=== PATIENT | male | born 1985 | race Caucasian/White ===

== ENCOUNTER 2016-05-03 21:34 | Emergency (ER) | payer OTHER ==
[~2016-05-03] VITALS: Ht 182.9 cm; Wt 122.5 kg
[2016-05-03 21:38] VITALS: BP 155/91
[2016-05-03] MEDS ORDERED: NACL 0.9% 1,000 ML IV ONE (23:10)
--- NOTE | 2016-05-03 23:59 | NUR ---
BIB WHEELCHAIR TO ER BED 7
--- NOTE | 2016-05-04 00:03 | NUR ---
Ryan odell in [facility] - 05/04/16 at 0009 by [facility] BIB WHEELCHAIR TO ER BED 7
--- NOTE | 2016-05-04 00:08 | NUR ---
PT IS A 30/M BIBA C/O POSSIBLE ALCOHOL INTOXICATION. EMS STATES BYSTANDERS CALLED 911 BECAUSE PT WAS FOUND LAYING ON THE STREET.
--- NOTE | 2016-05-04 00:26 | NUR ---
Patient being evaluated by DR. JARVIS at bedside.
--- NOTE | 2016-05-04 00:55 | NUR ---
Patient discharged with v/s stable BY DR. JARVIS. Written and verbal after care instructions given and explained. Patient verbalized understanding. Ambulatory with steady gait. All questions addressed prior to discharge. Advised to follow up with PMD.
--- NOTE | 2016-05-04 01:15 | NUR ---
PT TAKEN TO CT SCAN
--- NOTE | 2016-05-04 01:40 | NUR ---
CAME BACK FROM CT SCAN
[2016-05-04 06:04] VITALS: BP 125/76
== END 2016-05-04 05:55 | disposition home or self-care (01) ==
LOC: MED 21:34
DX: F19.10 Other psychoactive substance abuse, uncomplicated (principal); R03.0 Elevated blood-pressure reading, without diagnosis of hypertension
CPT/HCPCS: 36415; 70450; 80053; 80305; 81002; 85025; 85610; 85730; 96360; 99285; C1758; G0480; G0482; J7030

== ENCOUNTER 2019-03-22 08:44 | Emergency (ER) | payer OTHER ==
[~2019-03-22] VITALS: Ht 180.3 cm; Wt 99.8 kg
--- NOTE | 2019-03-22 08:44 | NUR ---
[facility] TO ER BED 03
[2019-03-22 08:49] VITALS: BP 160/94
[2019-03-22] MEDS ORDERED: predniSONE 20 MG TAB PO ONE (09:50)
[2019-03-22] MEDS ORDERED: ALBUTEROL SULFATE/IPRATROPIU 3 ML SOL IH ONE ×2 (09:50→11:05)
[2019-03-22] MEDS ORDERED: ALBUTEROL 0.083% 2.5 MG/3 ML NEBU INH ONE ×2 (09:50→11:05)
--- NOTE | 2019-03-22 10:00 | NUR ---
[facility] GIVEN ORDERED
[2019-03-22] MEDS ORDERED: KETOROLAC 60 MG/2 ML VIAL IM ONE (11:05)
--- NOTE | 2019-03-22 11:29 | NUR ---
FOLLOW UP [facility] GIVEN ORDERED
--- NOTE | 2019-03-22 12:12 | NUR ---
PATIENT EATING ON HIS BED
[2019-03-22 12:51] VITALS: BP 119/86
--- NOTE | 2019-03-22 12:52 | NUR ---
Patient discharged with v/s stable. Written and verbal after care instructions given and explained. Patient alert, oriented and verbalized understanding of instructions. Ambulatory with steady gait. All questions addressed prior to discharge. ID band removed. Patient advised to follow up with PMD. Rx of MOTRIN, PREDNISONE, ALBUTEROL given. Patient educated on indication of medication including possible reaction and side effects. Opportunity to ask questions provided and answered.
== END 2019-03-22 12:52 | disposition home or self-care (01) ==
LOC: MED 08:44
DX: J45.909 Unspecified asthma, uncomplicated (principal)
CPT/HCPCS: 94640; 96372; 99284; J1885; J7512; J7613; J7620

== ENCOUNTER 2020-09-01 16:08 | Inpatient (IN) | payer OTHER, SELFPAY ==
[~2020-09-01] VITALS: Ht 182.9 cm; Wt 84.8 kg
[2020-09-01 16:17] VITALS: BP 155/102
--- NOTE | 2020-09-01 16:23 | NUR ---
PATIENT W/C TO BED 11.
--- NOTE | 2020-09-01 16:33 | NUR ---
Dr. Domingo is evaluating the patient at bedside.
--- NOTE | 2020-09-01 16:35 | NUR ---
PATIENT PRESENTS TO ED WITH LARGE BLISTER TO RIGHT KNEE THAT PATIENT NOTICED YESTERDAY, RIGHT LOWER EXTREMITIY IS INFLAMED AND SWOLLEN . DENIES N/V/D; SKIN IS PINK/WARM/DRY; AAOX4 WITH EVEN AND STEADY GAIT; LUNGS CLEAR BL; HR EVEN AND REGULAR; PT DENIES ANY FEVER, CP, SOB, OR COUGH AT THIS TIME; PATIENT STATES PAIN OF 7/10 AT THIS TIME; VSS; PATIENT POSITIONED FOR COMFORT; HOB ELEVATED; BEDRAILS UP X2; BED DOWN. ER MD MADE AWARE OF PT STATUS.
[2020-09-01] MEDS ORDERED: CLINDAMYCIN 900 MG in DEXTROSE 5% 100 ML IV ONE (16:40)
[2020-09-01] MEDS ORDERED: PIPERACILLIN/TAZOBACTAM 4.5 GM in DEXTROSE 5% 100 ML IV ONE (16:40)
[2020-09-01] MEDS ORDERED: VANCOMYCIN 1,000 MG in DEXTROSE 5% 250 ML IV ONE (16:40)
[2020-09-01] MEDS ORDERED: NACL 0.9% 1,000 ML IV ONE (16:40)
[2020-09-01] MEDS ORDERED: ONDANSETRON 4 MG/2 ML VIAL IVP ONE (16:45)
[2020-09-01] MEDS ORDERED: MORPHINE SULFATE 4 MG/ML SYR IVP ONE (16:45)
[2020-09-01] MEDS ORDERED: VANCOMYCIN 1,000 MG VIAL ONE (16:45)
[2020-09-01 17:10] LABS: BASOPHILS # (AUTO) 0.1 K/uL (0.00-0.22); BASOPHILS % (AUTO) 0.9 % (0.0-2.0); EOSINOPHILS # (AUTO) 0.8 K/uL (0-0.4); EOSINOPHILS % (AUTO) 7.6 % (0.0-4.0); HEMATOCRIT 41.3 % (36-52); HEMOGLOBIN 13.6 g/dL (12.0-18.0); LYMPHOCYTES # (AUTO) 2.2 K/uL (2.0-11.5); LYMPHOCYTES % (AUTO) 19.6 % (20.5-51.1); MEAN CORPUSCULAR HEMOGLOBIN 29 pg (27-31); MEAN CORPUSCULAR HGB CONC 33 g/dL (33-37); MEAN CORPUSCULAR VOLUME 86.5 fL (80-94); MONOCYTES # (AUTO) 1.1 K/uL (0.8-1.0); MONOCYTES % (AUTO) 9.8 % (1.7-9.3); NEUTROPHILS # (AUTO) 6.8 K/uL (1.8-7.7); NEUTROPHILS % (AUTO) 62.1 % (42.2-75.2); PLATELET COUNT (AUTO) 425 K/uL (140-450); RED BLOOD CELL COUNT(AUTO) 4.77 MIL/uL (4.20-6.10); RED CELL DISTRIBUTION WIDTH 14.4 % (11.6-13.7)
[2020-09-01 17:25] LABS: ALBUMIN 4.1 g/dL (3.4-5.0); ANION GAP 8.9 (8-16); CARBON DIOXIDE 31.2 mmol/L (21-32); CREATININE 1.1 mg/dL (0.6-1.3); POTASSIUM 4.1 mmol/L (3.5-5.1); TOTAL BILIRUBIN 0.4 mg/dL (0.0-1.0)
[2020-09-01] MEDS ORDERED: CLINDAMYCIN 900 MG/6 ML VIAL IV ONE (17:30)
--- NOTE | 2020-09-01 17:39 | NUR ---
PATIENT TAKEN TO CT VIA WHEELCHAIR
--- NOTE | 2020-09-01 18:23 | NUR ---
COVID SWAB OBTAINED FROM PATIENT
[2020-09-01] MEDS ORDERED: PIPERACILLIN/TAZOBACTAM 4.5 GM VIAL IV ONE (18:29)
[2020-09-01] MEDS ORDERED: ACETAMINOPHEN 325 MG TAB PO PRN (19:25)
[2020-09-01] MEDS ORDERED: MORPHINE SULFATE 2 MG/ML SYR IVP PRN (19:25)
[2020-09-01] MEDS ORDERED: ONDANSETRON 4 MG/2 ML VIAL IVP PRN (19:25)
[2020-09-01] MEDS ORDERED: VANCOMYCIN PER PHARMACY MC PRN (19:30)
--- NOTE | 2020-09-01 20:31 | NUR ---
report given to Genny CARBAJAL from [facility] unit. pt currently a/o x 4, gcs 15. able to move all extremities freely. will be admitted under the care of Dr. Olvera. belongings list completed. no meds being taken at home.
[2020-09-01 20:50] VITALS: BP 113/65
--- NOTE | 2020-09-01 20:55 | NUR ---
PATIENT ARRIVED TO THE FLOOR, APPEARED ANXIOUS D/T GIRLFREIENDS NOT IN ROOM, ALLOWED GIRLFRIEND TO DROP OFF FOOD AND VISIT FOR A FEW MINUTED. PT IS AAOX4. AMBULATORY ABLE TO MAKE NEEDS KNOWN. RESPIRATIONS ARE EQUAL AND UNLABORED ON ROOM AIR. LUNG SOUNDS ARE CLEAR. C/C R KNEE PAIN, BLISTER AND SWELLING. PER PT REDNESS DEVELOPED A FEW DAYS AGO CANNOT REMEMBER HE BELIEVED IT WAS SUNBURN BUT ITS DECREASING, BLISTER APPEARED YESTERDAY.PICTURE TAKEN NO OPEN WOUND NOTED, PT IS HOMELESS, NO ER VISITS IN THE PAST 60 DAYS PER PT. IV ON LAC 20G, ORIENTED PT TO ROOM, STAFF, CALL LIGHT AND VISITING HOURS. POC DISCUSSED WITH PT. CALL LIGHT IS WITHIN REACH. WILL CONTINUE TO MONITOR
--- NOTE | 2020-09-01 21:00 | NUR ---
GIRLFRIEND MARIELLA AT BEDSIDE. PT IS EATING BURGER FROM FAST FOOD NO DIET RESTRICTION. MRSA SWAB OBTAINED AND SENT TO LAB WILL CONTINUE TO MONITOR
[2020-09-01] MEDS: NACL 0.9% 1,000 ML IV SCH (21:36)
--- NOTE | 2020-09-01 22:00 | NUR ---
ROUNDS MADE. PT OBSERVED IN BED WITH EYES CLOSED APPEARS TO BE ASLEEP. CHEST RISE AND FALL NOTED. WILL CONTINUE TO MONITOR.
--- NOTE | 2020-09-02 | NUR ---
VITAL SIGNS ARE WITHIN NORMAL LIMITS. CALL LIGHT IS WITHIN REACH.
[2020-09-02] MEDS ORDERED: VANCOMYCIN 1GM/DEXT 5% PREMIX 200 ML IV SCH (01:00)
[2020-09-02] MEDS ORDERED: VANCOMYCIN 1,000 MG VIAL ONE (01:02)
[2020-09-02 01:09] VITALS: BP 109/63
--- NOTE | 2020-09-02 02:01 | NUR ---
ROUNDS MADE. PT APPEARS TO BE ASLEEP. CHEST RISE AND FALL NOTED. CALL LIGHT IS WITHIN REACH.
[2020-09-02] MEDS: NACL 0.9% 1,000 ML IV SCH ×2 (03:25→11:25)
[2020-09-02 04:00] VITALS: BP 134/88
[2020-09-02] MEDS ORDERED: PIPERACILLIN/TAZOBACTAM 3.375 GM VIAL IV ONE (04:01)
[2020-09-02] MEDS: PIPERACILLIN/TAZOBACTAM 3.375 GM in DEXTROSE 5% 50 ML IV SCH ×2 (04:21→13:18)
--- NOTE | 2020-09-02 04:21 | NUR ---
PATIENT IS SLEEPING, VITAL SIGNS ARE WITHIN NORMAL RANGE. SAFETY MEASURES ARE IN PLACE. CALL LIGHT IS WITHIN REACH.
[2020-09-02 06:07] LABS: BASOPHILS # (AUTO) 0.1 K/uL (0.00-0.22); BASOPHILS % (AUTO) 0.5 % (0.0-2.0); EOSINOPHILS # (AUTO) 1.3 K/uL (0-0.4); EOSINOPHILS % (AUTO) 14.2 % (0.0-4.0); HEMATOCRIT 36.8 % (36-52); LYMPHOCYTES # (AUTO) 2.4 K/uL (2.0-11.5); MEAN CORPUSCULAR HEMOGLOBIN 29 pg (27-31); MEAN CORPUSCULAR HGB CONC 33 g/dL (33-37); MEAN CORPUSCULAR VOLUME 88.1 fL (80-94); MONOCYTES % (AUTO) 11.1 % (1.7-9.3); NEUTROPHILS # (AUTO) 4.6 K/uL (1.8-7.7); NEUTROPHILS % (AUTO) 49.2 % (42.2-75.2); PLATELET COUNT (AUTO) 365 K/uL (140-450); RED BLOOD CELL COUNT(AUTO) 4.17 MIL/uL (4.20-6.10); RED CELL DISTRIBUTION WIDTH 14.5 % (11.6-13.7); WHITE BLOOD COUNT (AUTO) 9.4 K/uL (4.8-10.8)
[2020-09-02 06:47] LABS: ALBUMIN 2.7 g/dL (3.4-5.0); ANION GAP 10.9 (8-16); CARBON DIOXIDE 28.9 mmol/L (21-32); POTASSIUM 3.8 mmol/L (3.5-5.1); TOTAL BILIRUBIN 0.4 mg/dL (0.0-1.0)
--- NOTE | 2020-09-02 07:30 | NUR ---
GAVE BEDSIDE REPORT TO DAY RN. PT ENDORSED IN STABLE CONDITION.
--- NOTE | 2020-09-02 07:35 | NUR ---
PT RECEIVED FROM HANNA HARRINGTON RN. PT AMBULATED TO RESTROOM TOLERATED WELL. NO S/SX OF DISTRESS. ALL SAFETY MEASURES ARE IN PLACE.
[2020-09-02 08:00] VITALS: BP 127/81
--- NOTE | 2020-09-02 08:00 | NUR ---
PT STATED HE WANTS HIS BLISTERS POPPED IF NOT HE WILL POP THEM HIMSELF. PT EDUCATED. REINFORCEMENT NEEDED. AWARE
--- NOTE | 2020-09-02 08:44 | NUR ---
PATIENT HAS BEEN SCREENED AND CATEGORIZED LOW NUTRITION RISK. PATIENT WILL BE SEEN WITHIN 7 DAYS OF ADMISSION. 09/08/[address]
[2020-09-02] MEDS ORDERED: ENOXAPARIN 40 MG/0.4 ML SYR SUBQ SCH (09:00)
--- NOTE | 2020-09-02 09:25 | NUR ---
NEW IV LINE STARTED ON RIGHT FOREARM 22G. 2ND ATTEMPT PT TOLERATED WELL.
[2020-09-02] MEDS: VANCOMYCIN 1,000 MG in DEXTROSE 5% 250 ML IV SCH ×2 (09:27→17:30)
--- NOTE | 2020-09-02 09:30 | NUR ---
MEDICATIONS GIVEN PER MD ORDER PT EDUCATED PT VERBALIZED UNDERSTANDING. NO S/SX OF DISTRESS. ALL SAFETY MEASURES ARE IN PLACE
--- NOTE | 2020-09-02 10:20 | NUR ---
PT REASSESSED. PT IN BED NO PAIN AT THIS TIME
--- NOTE | 2020-09-02 12:00 | NUR ---
PT STATES LUNCH IS NOT ENOUGH NEW LUNCH ORDERED
--- NOTE | 2020-09-02 13:24 | NUR ---
MEDICATIONS GIVEN PER MD ORDER PT EDUCATED PT VERBALIZED UNDERSTANDING. NO S/SX OF DISTRESS. ALL SAFETY MEASURES ARE IN PLACE
--- NOTE | 2020-09-02 14:15 | NUR ---
PT AGITATED AND UNCOOPERATIVE. PT STATES HE WILL LEAVE AND WILL POP HIS "BUBBLE- BIG FLUID FILLED VESICLE. PT EDUCATED REINFORCEMENT NEEDED
--- NOTE | 2020-09-02 14:25 | NUR ---
MD AND CHARGE NURSE AT BEDSIDE EDUCATING PT TO STAY/ PT VERBALIZED UNDERSTANDING FOR CONTINUITY OF CARE
--- NOTE | 2020-09-02 14:30 | NUR ---
PT COMPLAINS OF 12/10 PAIN ON HIS LEFT LEG AND RIGHT LEG. PRN MEDICATIONS GIVEN PER MD ORDER PT EDUCATED PT VERBALIZED UNDERSTANDING. NO S/SX OF DISTRESS. ALL SAFETY MEASURES ARE IN PLACE
--- NOTE | 2020-09-02 16:00 | NUR ---
PT REQUEST SNACKS. PT GIVEN JELLO
--- NOTE | 2020-09-02 16:24 | NUR ---
DC PLANNING: ATTEMPTED TO INTERVIEW PATIENT. PATIENT UNABLE TO STAY AWAKE, ASKED CM TO RETURN.
--- NOTE | 2020-09-02 18:05 | NUR ---
PT ROUNDED ON PT HAS EYES CLOSED. EASY TO AROUSE.
--- NOTE | 2020-09-02 19:30 | NUR ---
PT ENDORSED TO [employer] NURSE. PT IS IN STABLE CONDITION
--- NOTE | 2020-09-02 20:13 | NUR ---
PT UPSET BECAUSE HE FEELS IF NOTHING IS BEING DONE FOR HIM, HE IS WANTING BOIL ON HIS RIGHT LEG TO BE REMOVED AND HE IS UPSET BECAUSE HE FEELS THAT THIS WILL NOT HAPPEN. SPOKE WITH PATIENT AND REMINDED HIM THAT HE DOES HAVE A SURGICAL CONSULT WITH SURGEON OH SCHEDULED AND THAT MD ZOHAIB OLMSTEAD OF INFECTIOUS DISEASES WAS HERE TO CONSULT WITH HIM. ENCOURAGED PT TO WAIT AND SPEAK WITH PRIMARY MD AND REMINDED PT THAT HE IS RECEIVING IV ABT'S FOR HIS INFECTED RIGHT LEG. PT SIGNED AMA AND UNDERSTANDS THAT HE WILL BE LEAVING WITHOUT CONSULT FORM THE MD. AMA PAPERS SIGNED , IV SITE REMOVED WITH CANNULA INTACT AND NAME REMOVED. PT DECLINED EXIT V/S. HE WALKED OUT OF HERE WITH BELONGINGS IN HAND.
== END 2020-09-02 20:10 | disposition left against medical advice (07) | DRG 383 ==
LOC: MED 16:08 → MTU 19:29
PROVIDERS: ADMIT Hospitalist; ATTEND Hospitalist
DX: L03.115 Cellulitis of right lower limb (principal); F15.10 Other stimulant abuse, uncomplicated; J45.909 Unspecified asthma, uncomplicated; Z20.822 Contact with and (suspected) exposure to COVID-19
CPT/HCPCS: 36415; 73701; 80053; 83605; 85025; 85651; 86140; 87040; 87081; 96365; 96367; 96375; 99285; J1650; J2270; J2405; J2543; J3370; J3490; J7060